=== PATIENT | male | born 1995 | race Two or more races ===

== ENCOUNTER 2022-05-20 00:03 | Emergency (ER) | payer SELFPAY ==
[~2022-05-20] VITALS: Ht 185.4 cm; Wt 77.0 kg
[2022-05-20] MEDS ORDERED: KETOROLAC TROMETH 60MG/2ML VIAL IM ONE (04:15)
[2022-05-20] MEDS ORDERED: ACE3T PO (04:20)
[2022-05-20 05:42] VITALS: BP 129/73
[2022-05-20] MEDS ORDERED: cefTRIAXone SOD 1,000 MG VL ONE (10:05)
[2022-05-20] MEDS ORDERED: LIDOCAINE 1% HCL (LOCAL ANESTH.) INJ 20ML MDV ONE (10:06)
== END 2022-05-20 05:45 | disposition home or self-care (01) ==
LOC: ER 00:03
DX: S62.342A Nondisplaced fracture of base of third metacarpal bone, right hand, initial encounter for closed fracture (principal); F17.210 Nicotine dependence, cigarettes, uncomplicated; F12.10 Cannabis abuse, uncomplicated; W22.8XXA Striking against or struck by other objects, initial encounter; Y93.89 Activity, other specified; Y92.89 Other specified places as the place of occurrence of the external cause; Y99.8 Other external cause status
CPT/HCPCS: 29125; 73120; 96372; 99283; J0696; J1885; J2001; J7050